=== PATIENT | male | born 1995 | race Caucasian/White ===

== ENCOUNTER → 2017-09-11 15:39 | Outpatient (CLI) | payer OTHER, SELFPAY ==
[2017-09-11 17:59] LABS: CRP < 2.90 mg/L (0.0-3.0)
[2017-09-14 20:09] LABS: Endomysial Antibody IgA Negative (Negative); Immunoglobulin A 73 mg/dL (90-386)
[2017-09-15 15:51] LABS: t-Transglutaminase IgA <2 U/mL (0-3)
== END ==
PROVIDERS: Family Provider Family Medicine; PCP Family Medicine; Visit Provider Internal Medicine Gastroenterology
DX: K62.5 Hemorrhage of anus and rectum (principal); R10.9 Unspecified abdominal pain
CPT/HCPCS: 36415; 82784; 83516; 86140; 86255

== ENCOUNTER → 2017-09-18 15:09 | Outpatient (CLI) | payer OTHER, SELFPAY ==
[2017-09-21 16:09] LABS: Endomysial Antibody IgA Negative (Negative)
[2017-09-21 17:36] LABS: Deamidated Gliadin IgA 2 units (0-19); Deamidated Gliadin IgG 2 units (0-19); Immunoglobulin A 69 mg/dL (90-386); t-Transglutaminase IgA <2 U/mL (0-3)
== END ==
PROVIDERS: Family Provider Family Medicine; PCP Family Medicine; Visit Provider Internal Medicine Gastroenterology
DX: K62.5 Hemorrhage of anus and rectum (principal); R19.8 Other specified symptoms and signs involving the digestive system and abdomen; K59.09 Other constipation
CPT/HCPCS: 36415; 82784; 83516; 86255

== ENCOUNTER 2025-01-24 03:14 | Emergency (ER) | payer SELFPAY ==
[2025-01-24 03:14] VITALS: BP 103/67; PULSE 52; RESP 16; TEMP 37.2; O2SAT 100; BMI 25.2
[2025-01-24] MEDS: 0.9% Normal Saline (1000mL) 1,000 ML 999 ML IV (03:40)
[2025-01-24 03:48] LABS: Hematocrit 39.1 % (40-54); Hemoglobin 13.9 g/dL (13.0-16.5); Immature Granulocytes Count 0.010 X10^3/uL (0.0-0.0); Mean Corp Hgb Conc 35.5 g/dL (32-36); Mean Corpuscular Volume 90.5 fL (80-94); Mean Platelet Vol. 9.3 fl (6.2-12.0); NRBC Flagged by Analyzer 0 % (0-5); Platelet Count 202 K/mm3 (150-450); RBC Distribution Width CV 11.7 % (11.6-14.6); RBC Distribution Width SD 38.5 fl (35.1-43.9); Red Blood Count 4.32 M/mm3 (4.6-6.2); White Blood Count 5.4 K/mm3 (4.4-11.0)
[2025-01-24 04:08] LABS: AST(SGOT) 19 U/L (<=37); Alanine Aminotransfer ALT/SGPT 16 U/L (<=46); Albumin, Serum 4.5 g/dL (3.5-5.0); Alkaline Phosphatase 37 U/L (40-129); Anion Gap 9 (5-15); BUN 18 mg/dL (4-19); BUN/Creat Ratio 18.6 RATIO (10-20); Bilirubin, Direct 0.18 mg/dL (0.00-0.30); Calcium,Total 9.2 mg/dL (7.6-11.0); Carbon Dioxide 29.3 mmol/L (21.0-32.0); Chloride 102 mmol/L (98-108); Estimated Creatinine Clearance 114.73 ml/min (50-250); Globulin 2.1 g/dL (2.2-4.2); Glucose 105 mg/dL (70-99); Lipase 26 U/L (13-75); Potassium 3.2 mmol/L (3.3-5.1)
--- NOTE | 2025-01-24 04:39 | CT_ITS ---
PROCEDURE: CT/Abdomen/Pelvis W IV Cont ONLY
[2025-01-24 05:14] VITALS: BP 103/63; PULSE 58; RESP 16; O2SAT 100
--- NOTE | 2025-01-24 05:20 | US_ITS ---
PROCEDURE: US/Liver
[2025-01-24 07:00] VITALS: BP 100/65; PULSE 63; RESP 20; TEMP 36.7; O2SAT 100
--- NOTE | 2025-01-24 07:47 | EX.ED.DYSGE1 ---
HPI History of Present Illness Chief Complaint: Abd Pain Informant: patient and spouse/S.O. Narrative Narrative: Patient is a 29-year-old male with no reported significant past medical history. He states that throughout the night he awoke and noticed some generalized abdominal discomfort with nausea. He denies any vomiting. He denies any fevers or chills or known sick contact. He states that he has been constipated but that this is normal for him. He states he is concerned about potential infection such as appendicitis as a cause of his abdominal discomfort and therefore comes in for evaluation. PFSH PFS Home Medications ?Medication ?Instructions ?Recorded ?Last Taken ?Type NK 01/24/25 Unknown History Allergy/AdvReac Type Severity Reaction Status Date / Time No Known Allergies Allergy Verified 01/24/25 03:14 Social History Smoking Status: Never smoker ROS ROS ED Constitutional Constitutional ED: Denies chills or fever(s) ENT ENT ED: Denies sore throat Cardiovascular Cardiovascular: Denies chest pain Respiratory/Chest Respiratory/Chest: Denies cough or dyspnea Gastrointestinal Gastrointestinal: Reports abdominal pain, constipation and nausea; Denies diarrhea or vomiting Genitourinary Genitourinary ED: Denies dysuria or hematuria Musculoskeletal Musculoskeletal: Denies back pain or myalgias Integumentary Denies rash Neurologic Neurologic: Denies headache(s) Hematologic/Lymphatic Hematologic/Lymphatic: Denies easy bleeding or easy bruising EXAM Physical Exam Const Vital Signs: 01/24/25 03:14 01/24/25 05:14 01/24/25 07:00 Temperature 98.9 F 98.0 F Temperature Source Oral Oral Pulse Rate 52 L 58 L 63 Respiratory Rate 16 16 20 H Blood Pressure 103/67 103/63 100/65 Blood Pressure Mean 79 76 76 Pulse Ox 100 100 100 Oxygen Delivery Method Room Air Room Air Room Air 01/24/25 07:54 Temperature 97.2 F L Temperature Source Pulse Rate 63 Respiratory Rate 17 Blood Pressure 100/67 Blood Pressure Mean 78 Pulse Ox 100 Oxygen Delivery Method Positive well nourished and well developed General Appearance ED: well developed; Negative for pallor HEENT Reports moist mucous membranes HEENT Narrative: Normocephalic atraumatic No tongue or lip swelling no oral lesions no airway edema or compromise; no secondary findings in the posterior pharynx to suggest infection Eyes PERRL and EOMs intact bilaterally General Eye ED: Negative for scleral icterus Neck supple Resp normal respiratory effort and clear to auscultation bilaterally Cardio regular rate and regular rhythm Rate: other Other Details: Heart is regular rate and rhythm without murmurs rubs or gallop Radial and carotid pulses are equal and symmetric GI non-distended and no masses GI Narrative: Abdomen is soft and nondistended with hypoactive bowel sounds. There is mild diffuse pain with palpation without voluntary guarding or rigidity. No pulsatile mass or fluid wave. No peritoneal signs Auscultation: hypoactive bowel sounds Palpation: soft Back/Spine no CVA tenderness Extremity normal to inspection Neuro oriented x3, CN's II-XII intact bilaterally and no sensory deficits noted Sensorium / Orientation: alert Motor Exam: strength 5/5 throughout Psych mental status grossly normal Skin no rashes or lesions noted General Skin Exam: Negative for jaundice or pallor MDM MDM MDM Narrative Medical decision making narrative: Patient arrived to the ER afebrile with stable vitals. Pain was mild and diffuse. His symptoms could be related to potential constipation versus ileus versus bowel obstruction versus appendicitis versus pancreatitis or biliary colic. In order to assess for this basic labs were obtained as well as a CT scan with IV contrast. Labs revealed no clinically significant finding. CT scan showed significant constipation without obstruction perforation or findings of appendicitis. It did document potential proctitis but the patient denies any rectal pain with defecation and it also reported potential cystitis but the patient denies any dysuria and as a male it would be atypical for him to get a UTI at such young age and he denies any concern for STD. On reevaluation his abdomen remains soft and nonsurgical and vital stable. As the CT scan did show changes around the liver there was concern that this could be a spontaneous hemorrhage and recommended ultrasound and therefore this was performed in the morning as well. This showed a cystic structure in the same area as the CAT scan as also roughly the same size as the CT report indicating there is no acute bleed but just a simple cyst. There is no need to have this further evaluated in the ER and it can be watched as an outpatient and therefore is otherwise safe for discharge History & Record Review Discussion w/independent historian: Patient and Significant other Lab Data Attestation: I reviewed the patient's lab results. Labs: Laboratory Results - last 24 hr 01/24/25 03:21 WBC 5.4 RBC 4.32 L Hgb 13.9 Hct 39.1 L MCV 90.5 MCH 32.2 H MCHC 35.5 RDW Std Deviation 38.5 RDW Coeff of Mackenzie 11.7 Plt Count 202 MPV 9.3 Immature Gran % (Auto) 0.200 Neut % (Auto) 46.1 L Lymph % (Auto) 38.6 Lander % (Auto) 12.3 H Eos % (Auto) 2.1 Baso % (Auto) 0.7 Absolute Neuts (auto) 2.5 Absolute Lymphs (auto) 2.07 Nucleated RBC % 0 Sodium 140 Potassium 3.2 L Chloride 102 Carbon Dioxide 29.3 Anion Gap 9 BUN 18 Creatinine 0.95 Estim Creat Clear Calc 114.73 Est GFR (MDRD) Non-Af 112 BUN/Creatinine Ratio 18.6 Glucose 105 H Calcium 9.2 Total Bilirubin 0.54 Direct Bilirubin 0.18 AST 19 ALT 16 Alkaline Phosphatase 37 L Total Protein 6.6 Albumin 4.5 Globulin 2.1 L Lipase 26 Radiography Diagnostic Testing: Clinical Impression(s) from Imaging Studies Abdomen/Pelvis CT 01/24/25 04:39 IMPRESSION: Left hepatic lobe hypodense lesion. Advise sonography correlation. Diffuse uniform rectal wall thickening with perirectal fat stranding and prominent vascular channels. Proctitis is among the diagnostic possibilities. Advise clinical correlation. Urinary bladder mural thickening. Advise clinical and laboratory correlation to exclude the possibility of cystitis. Reading Location: [place] [id number] Liver Ultrasound 01/24/25 05:20 IMPRESSION: 2.6 cm x 2.2 cm by 1.9 cm cyst in the left lobe of the liver Reading Location: [facility] Discharge Plan Triage Chief Complaint: Abd Pain ED Provider: Maicol Roy Dx/Rx/DC Orders Clinical Impression: Nonspecific abdominal pain, Constipation, Hepatic cyst Instructions: Abdominal Pain, IBS Irritable Bowel Syndrome, ED Constipation (Adult) Prescriptions: No Action NK Primary Care Provider: Ramiro Calderon Referrals: Ramiro Calderon MD [Primary Care Provider, Medical] Activity Restrictions/Additional Instructions: Please talk to your family doctor about potentially starting Linzess as this could help with the significant constipation noted on your CT scan today. Also discussed with your family doctor having yearly liver ultrasounds to assess the cyst that was found. You may also try taking 1 packet or 1 cap of MiraLAX twice a day for at least 7 days straight to help with constipation issues. Return to the ER should you have any further concerns Print Language: Swazi Disposition Disposition: Home, Self Care Discharge Date/Time: 01/24/25 07:55
[2025-01-24 07:54] VITALS: BP 100/67; PULSE 63; RESP 17; TEMP 36.2; O2SAT 100
== END 2025-01-24 07:55 | disposition home or self-care (01) ==
PROVIDERS: Emergency Provider Emergency Medicine; PCP Family Medicine; Visit Provider Emergency Medicine
DX: R10.84 Generalized abdominal pain (principal); K59.00 Constipation, unspecified; K76.89 Other specified diseases of liver
CPT/HCPCS: 74177; 76705; 80048; 80076; 83690; 85025; 96360; 96361; 99282; Q9967; A4216